=== PATIENT | male | born 1970 | race Caucasian/White ===

== ENCOUNTER 2017-03-31 10:20 | Observation (INO) | payer OTHER ==
[2017-03-31] MEDS ORDERED: ceFAZolin 2 GM/DEXTROSE 100 ML IV ONE (14:15)
[2017-03-31] MEDS ORDERED: LR 1,000 ML IV ONE (15:46)
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
[2017-03-31] MEDS ORDERED: BUPIVACAINE 0.5% 30 ML SDV ONE (17:43)
[2017-03-31] MEDS ORDERED: POLYMYXIN B SULFATE 500,000 UNIT/10 ML SYR IRR ONE (17:57)
[2017-03-31] MEDS ORDERED: BACITRACIN 50,000 UNITS/10 ML SYR IRR ONE (17:58)
[2017-03-31] MEDS ORDERED: MIDAZOLAM 2 MG/2 ML VIAL IVP ONE (18:21)
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
[2017-03-31] MEDS ORDERED: MIDAZOLAM 2 MG/2 ML VIAL ONE (18:28)
[2017-03-31] MEDS ORDERED: fentaNYL 100 MCG/2 ML INJ ONE ×2 (18:31→20:01)
[2017-03-31] MEDS ORDERED: PROPOFOL/EMULSION 500 MG/50 ML BOTTLE IV ONE (18:31)
[2017-03-31] MEDS ORDERED: BUPIVACAINE/EPI 0.5% 30 ML SDV ONE (19:05)
[2017-03-31] MEDS ORDERED: DEXAMETHASONE 4 MG/ML VIAL ONE (20:00)
[2017-03-31] MEDS ORDERED: ONDANSETRON 4 MG/2 ML VIAL ONE (20:00)
[2017-03-31] MEDS ORDERED: KETOROLAC 30 MG/1 ML SDV ONE (20:01)
[2017-03-31] MEDS ORDERED: D5W LR 500 ML IV PRN (20:22)
[2017-03-31] MEDS ORDERED: HYDROCODONE/APAP 5/325 TAB PO PRN (20:22)
[2017-03-31] MEDS ORDERED: ACETAMINOPHEN 500 MG TAB PO PRN (20:22)
[2017-03-31] MEDS ORDERED: fentaNYL 100 MCG/2 ML INJ IVP PRN (20:22)
[2017-03-31] MEDS ORDERED: PROMETHAZINE HCL 25 MG/ML INJ IVP PRN (20:22)
[2017-03-31] MEDS ORDERED: NALOXONE HCL 0.4 MG/ML INJ IVP PRN (20:22)
[2017-03-31] MEDS ORDERED: IPRATROPIUM/ALBUTEROL 3 ML DEYVIAL IH PRN (20:23)
--- NOTE | 2017-03-31 20:52 | POSTANESTH ---
Post Anesthetic Evaluation Cardiovascular Status: Normal, Stable Respiratory Status: Normal, Stable Level of Consciousness/Mental Status: Can Participate in Eval, Alert and Oriented Pain Control: Adequate, Prn Tx Ordered Nausea/Vomiting Control: Adequate, Prn Tx Ordered Complications Possibly Related to Anesthesia: None Noted
--- NOTE | 2017-03-31 21:17 | POSTOPPROG ---
Post Op Note Date of Operation: 03/31/17 Surgeon: Papo Ledezma Pre-op Diagnosis: right 5th finger compound fracture proximal phalanx Post-op Diagnosis: same Procedure: debridement, irrigation and k-wire fixation same Inf/Abcess present in the surg proc area at time of surgery?: No
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
[2017-04-01] MEDS: IBUPROFEN 200 MG TAB PO PRN ×2 (01:08→14:20)
--- NOTE | 2017-04-01 12:24 | GOP ---
[f rep st] OPERATIVE REPORT DATE OF OPERATION: 03/31/2017 SURGEON: Papo Ledezma MD PREOPERATIVE DIAGNOSIS: Compound fracture, right little finger proximal phalanx. POSTOPERATIVE DIAGNOSIS: Comminuted compound fracture, right 5th finger proximal phalanx. PROCEDURE PERFORMED: Open reduction, debridement, and K-wire fixation of right 5th finger proximal phalanx. FINDINGS: ESTIMATED BLOOD LOSS: 15 mL. DESCRIPTION OF PROCEDURE: With the patient lying supine under general anesthesia, right hand and forearm were prepped and draped in usual sterile fashion. Hand was elevated for a period of 90 seconds and tourniquet was inflated to 250 mmHg. The existing laceration in the webspace extending both volarly and dorsally was further extended on the dorsal surface paying attention to blood supply and curving back to lateral skin flaps to be elevated and exposed the underlying extensor apparatus. Most of the radial side of the extensor apparatus had been disrupted and slight extension of this proximally and mid portion of the tendon was carried out to further allow exposure. At the volar aspect of the wound, the radial side digital nerve was completely exposed by the injury and was noted to be intact although it appeared to have been bruised up a little bit. The major proximal and distal fracture segments were identified and debrided of all fracture hematoma that was present. Irrigation was then carried out with a jet pulse project superintendent using 1000 cc of bacitracin and polymyxin. The fracture surrounding tissue was noted to not have any signs of contamination. Attempt was made to perform reduction under direct vision and it soon became apparent that there was a missing segment of bone. K-wires were placed initially as a way of lining things up with an eye towards possibly placing a plate. This was done with enough difficulty that I did not feel I had a good place to place a plate. A total of three 0.028 K-wires were placed dorsally, and these were confirmed on the C-arm to give good reduction. The K- wires were cut short at the dorsal surface and punctured through the tendon apparatus, but left underneath the skin. Tendon apparatus was repaired with 4-0 Vicryl, and skin was repaired with 4-0, 5-0 Prolene leaving repair fairly loose. Dressing of Xeroform gauze was applied followed by a fiberglass splint. Procedure was tolerated well. TOURNIQUET TIME: 79 minutes. /[id number]/MODL MTDD
[2017-04-01 15:16] VITALS: BP 117/58; PULSE 72; RESP 15; TEMP 98.7; O2SAT 95
== END 2017-04-01 18:14 | disposition home or self-care (01) ==
LOC: FSGY 14:40 → F2W 20:50
PROVIDERS: ADMIT Plastic Surgery; ATTEND Plastic Surgery
PROC: 0PST04Z Reposition Right Finger Phalanx with Internal Fixation Device, Open Approach (ICD-10-PCS; principal; 2017-03-31 16:00)
DX: S62.616B Displaced fracture of proximal phalanx of right little finger, initial encounter for open fracture (principal); V29.9XXA Motorcycle rider (driver) (passenger) injured in unspecified traffic accident, initial encounter; Y92.410 Unspecified street and highway as the place of occurrence of the external cause; F17.210 Nicotine dependence, cigarettes, uncomplicated
CPT/HCPCS: 26735; 73130; 96365; 99285; C1769; G0378; J0690; J1100; J1885; J2250; J2405; J2704; J3010

== ENCOUNTER → 2017-04-28 | Outpatient (CLI) | payer OTHER | LOC: FIMAGING 11:22 | PROVIDERS: ATTEND Plastic Surgery | DX: S62.616G Displaced fracture of proximal phalanx of right little finger, subsequent encounter for fracture with delayed healing (principal) ==